=== PATIENT | male | born 1990 | race Caucasian/White ===

== ENCOUNTER 2018-12-08 10:55 | Emergency (ER) | payer SELFPAY ==
[~2018-12-08] VITALS: Ht 177.8 cm; Wt 72.0 kg
[2018-12-08 11:06] VITALS: BP 131/75
--- NOTE | 2018-12-08 11:23 | NUR ---
PT AMBULATORY TO ROOM 7 W/ C/O RASH UNDERNEATH R EYE STARTED 1 MONTH AGO. PT STATES HE WENT TO HIS PCP AND WAS TOLD IT WAS NOT FUNGAL THEY ASSESSED PT FLAKES UNDERNEATH MICROSCOPE. PT RESTING ON JOSE DANIEL. NADN. JUDE MUNOZ AT BEDSIDE.
[2018-12-08] MEDS ORDERED: PROPARACAINE OPHTH 0.5%, 15ML ONE (11:25)
[2018-12-08] MEDS ORDERED: FLUORESCEIN OPHTHALMIC 1 MG STRIP ONE (11:25)
[2018-12-08] MEDS ORDERED: FLUORESCEIN OPHTHALMIC 1 MG STRIP EACHEYE ONE (11:30)
[2018-12-08] MEDS ORDERED: PROPARACAINE OPHTH 0.5%, 15ML EACHEYE ONE (11:30)
== END 2018-12-08 11:57 | disposition home or self-care (01) ==
LOC: ED 11:53
DX: L03.213 Periorbital cellulitis (principal)
CPT/HCPCS: 99283